=== PATIENT | male | born 2000 | race Caucasian/White ===

== ENCOUNTER 2019-03-10 12:08 | Emergency (ER) | payer OTHER ==
[~2019-03-10] VITALS: Ht 185.4 cm; Wt 115.6 kg
[2019-03-10] MEDS ORDERED: IBUP80TA PO (14:24)
[2019-03-10] MEDS ORDERED: AUGM875T28 PO (14:29)
[2019-03-10 14:39] VITALS: BP 135/63
[2019-03-14] MEDS ORDERED: BACT800T5 PO (07:49)
== END 2019-03-10 14:53 | disposition home or self-care (01) ==
LOC: M ED 12:08
DX: L03.011 Cellulitis of right finger (principal); L02.511 Cutaneous abscess of right hand

== ENCOUNTER 2019-04-06 07:11 | Emergency (ER) | payer OTHER ==
[~2019-04-06] VITALS: Ht 185.4 cm; Wt 119.7 kg
[~2019-04-06 07:11] MED LIST: AUGM875T28 PO; BACT800T5 PO; IBUP80TA PO
[2019-04-06 07:12] VITALS: BP 133/82
--- NOTE | 2019-04-06 08:53 | REP ---
Right hand four views for recurrent fourth metacarpal subluxation: There are no comparisons. Right hand four views : There is no fracture or dislocation. Mineralization and joint spaces are normal. There are no calcifications or foreign bodies. Impression: Negative right hand . Electronically Signed by Boyd Navarro MD 04/06/2019 08:44 A
== END 2019-04-06 09:05 | disposition home or self-care (01) ==
LOC: M ED 07:11
DX: S63.91XA Sprain of unspecified part of right wrist and hand, initial encounter (principal); W19.XXXA Unspecified fall, initial encounter; Y92.9 Unspecified place or not applicable; Y93.9 Activity, unspecified; Y99.9 Unspecified external cause status